=== PATIENT | male | born 2000 | race Caucasian/White ===

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

== ENCOUNTER 2022-04-04 20:50 | Emergency (ER) | payer MEDICAID ==
[~2022-04-04] VITALS: Ht 172.7 cm; Wt 53.5 kg
[2022-04-04 21:00] VITALS: BP_SYST 153
--- NOTE | 2022-04-04 22:27 | NUR ---
Patient to ER bed 6 to gown for evaluation. Side rails up. Report given to Ryan NOBLES(reg).
--- NOTE | 2022-04-04 22:35 | NUR ---
JUANA Robles at bedside examining patient.
[2022-04-04] MEDS ORDERED: NEOMY SULF/BACITRAC ZN/POLY 28 GM OINT..GM. TP ONE (23:00)
--- NOTE | 2022-04-04 23:00 | NUR ---
PT APPLIED BACETRCIM TO PENIS.TOLERATED WELL.
[2022-04-04] MEDS ORDERED: BACI28.433 TP (23:24)
[2022-04-04 23:36] VITALS: BP_SYST 123
--- NOTE | 2022-04-04 23:39 | NUR ---
Patient given written and verbal discharge instructions and verbalizes understanding. ER MD discussed with patient the results and treatment provided. Patient in stable condition. ID arm band removed. IV catheter removed intact and dressing applied, no active bleeding. Rx of BACITRACIN given. Patient educated on pain management and to follow up with PMD. Pain Scale . Opportunity for questions provided and answered. Medication side effect fact sheet provided.
== END 2022-04-04 23:35 | disposition home or self-care (01) ==
LOC: SED 20:50
DX: S30.812A Abrasion of penis, initial encounter (principal); Z79.899 Other long term (current) drug therapy; X58.XXXA Exposure to other specified factors, initial encounter; Y93.89 Activity, other specified; Y92.89 Other specified places as the place of occurrence of the external cause; Y99.8 Other external cause status
CPT/HCPCS: 99282

== ENCOUNTER 2023-10-09 14:15 | Emergency (ER) | payer MEDICAID ==
[~2023-10-09] VITALS: Ht 175.3 cm; Wt 83.9 kg
[2023-10-09 14:15] VITALS: BP_SYST 155; PULSE 89; RESP 18; TEMP 97.6; O2SAT 96
[~2023-10-09 14:15] MED LIST: BACI28.433 TP
== END 2023-10-09 14:40 | disposition home or self-care (01) ==
LOC: SED 14:15
DX: D22.5 Melanocytic nevi of trunk (principal); Z79.2 Long term (current) use of antibiotics
CPT/HCPCS: 99281

== ENCOUNTER 2023-12-26 09:52 | Emergency (ER) | payer MEDICAID ==
[~2023-12-26] VITALS: Ht 175.3 cm; Wt 79.4 kg
[2023-12-26 10:03] VITALS: BP_SYST 144; PULSE 88; RESP 18; TEMP 98.1; O2SAT 98
[2023-12-26] MEDS: cefTRIAXone 1 GM VIAL IM ONE (11:16)
[2023-12-26] MEDS ORDERED: VALA10002 PO (11:21)
[2023-12-26] MEDS ORDERED: DOXY100C5 PO (11:21)
[2023-12-26 11:25] VITALS: BP_SYST 144; PULSE 88; RESP 18; TEMP 98.1; O2SAT 98
== END 2023-12-26 11:36 | disposition home or self-care (01) ==
LOC: SED 09:52
DX: A60.00 Herpesviral infection of urogenital system, unspecified (principal); Z20.2 Contact with and (suspected) exposure to infections with a predominantly sexual mode of transmission; Z88.8 Allergy status to other drugs, medicaments and biological substances
CPT/HCPCS: 99283; 96372; J0696

== ENCOUNTER 2023-12-31 11:52 | Emergency (ER) | payer MEDICAID ==
[~2023-12-31] VITALS: Ht 175.3 cm; Wt 81.6 kg
[~2023-12-31 11:52] MED LIST changes: +DOXY100C5 PO; +VALA10002 PO
[2023-12-31 12:07] VITALS: BP_SYST 152; PULSE 102; RESP 16; TEMP 99; O2SAT 99
[2023-12-31 14:46] LABS: BILIRUBIN,URINE NEGATIVE (NEGATIVE); CLARITY/URINE CLEAR (CLEAR); COLOR,URINE YELLOW (YELLOW); GLUCOSE,URINE NEGATIVE (NEGATIVE); KETONES,URINE 3+ (NEGATIVE); LEUKOCYTE ESTERASE ,URINE NEGATIVE (NEGATIVE); NITRITE, URINE NEGATIVE (NEGATIVE); PH,URINE 6.5 (5.0-8.0); PROTEIN URINE NEGATIVE (NEGATIVE)
[2023-12-31 14:50] LABS: BLOOD, URINE TRACE (NEGATIVE)
[2023-12-31 14:57] LABS: BACTERIA,URINE RARE /HPF (None Seen); MUCUS,URINE None Seen /LPF (None Seen); RBC,URINE 0-3 /HPF (0-3); WBC,URINE 0-3 /HPF (0-3)
[2023-12-31 15:14] VITALS: BP_SYST 145; PULSE 98; RESP 16; TEMP 98.8; O2SAT 98
== END 2023-12-31 15:12 | disposition home or self-care (01) ==
LOC: SED 11:52
DX: Z11.3 Encounter for screening for infections with a predominantly sexual mode of transmission (principal); Z90.49 Acquired absence of other specified parts of digestive tract; Z88.6 Allergy status to analgesic agent; Z79.899 Other long term (current) drug therapy; Z79.2 Long term (current) use of antibiotics
CPT/HCPCS: 36415; 81000; 81001; 81015; 87491; 99283

== ENCOUNTER 2024-02-07 07:47 | Emergency (ER) | payer MEDICAID ==
[~2024-02-07] VITALS: Ht 175.3 cm; Wt 83.9 kg
[2024-02-07 07:54] VITALS: BP_SYST 144; PULSE 139; RESP 18; TEMP 98.7; O2SAT 98
[2024-02-07] MEDS: levETIRAcetam 500 MG TABLET PO ONE (08:05)
[2024-02-07] MEDS: DIPHTH,PERTUSS(ACELL),TET VAC 0.5 ML VIAL (Tdap) I.M. ONE (08:09)
[2024-02-07] MEDS: NACL 0.9% 1,000 ML IV ONE ×2 (08:10→09:43)
[2024-02-07 08:27] LABS: BASOPHILS # (AUTO) 0.1 K/uL (0.0-0.2); BASOPHILS % (AUTO) 0.9 % (0.0-2.0); EOSINOPHILS # (AUTO) 0.2 K/uL (0.0-0.4); EOSINOPHILS % (AUTO) 2.8 % (0.0-4.0); HEMATOCRIT 42.4 % (36-54); HEMOGLOBIN 14.4 g/dL (14.0-18.0); LYMPHOCYTES # (AUTO) 2.7 K/uL (1.0-5.5); LYMPHOCYTES % (AUTO) 45.3 % (20.5-51.5); MEAN CORPUSCULAR HEMOGLOBIN 30 pg (27-31); MEAN CORPUSCULAR HGB CONC 34 % (32-36); MEAN CORPUSCULAR VOLUME 89 fL (79.0-98.0); MONOCYTES # (AUTO) 0.4 K/uL (0.0-1.0); MONOCYTES % (AUTO) 6.3 % (1.7-9.3); NEUTROPHILS # (AUTO) 2.7 K/uL (1.8-7.7); NEUTROPHILS % (AUTO) 44.7 % (40.0-70.0); PLATELET COUNT (AUTO) 171 K/uL (130-430); RED BLOOD CELL COUNT(AUTO) 4.78 MIL/uL (4.2-6.2)
[2024-02-07 08:42] LABS: ALBUMIN 4.2 g/dL (3.4-4.8); CALCIUM 8.9 mg/dL (8.4-11.0); CREATININE 1.02 mg/dL (0.55-1.30); POTASSIUM 3.8 mmol/L (3.5-5.1); TOTAL BILIRUBIN 0.3 mg/dL (0.0-1.0); TOTAL PROTEIN, SERUM 7.1 g/dL (6.4-8.3)
[2024-02-07 10:49] VITALS: BP_SYST 132; PULSE 90; RESP 18; TEMP 98.7; O2SAT 98
== END 2024-02-07 10:51 | disposition home or self-care (01) ==
LOC: SED 07:47
DX: S00.212A Abrasion of left eyelid and periocular area, initial encounter (principal); S00.211A Abrasion of right eyelid and periocular area, initial encounter; R56.9 Unspecified convulsions; R00.0 Tachycardia, unspecified; Z23 Encounter for immunization; Z88.8 Allergy status to other drugs, medicaments and biological substances; Z79.899 Other long term (current) drug therapy; Z79.2 Long term (current) use of antibiotics; Z79.624 Long term (current) use of inhibitors of nucleotide synthesis; X58.XXXA Exposure to other specified factors, initial encounter; Y93.89 Activity, other specified; Y92.89 Other specified places as the place of occurrence of the external cause; Y99.8 Other external cause status
CPT/HCPCS: 99285; 96360; 70450; 96361; 80053; 85025; 36415; 90715; 82542; 83605; 90471; J7030